=== PATIENT | female | born 1995 | race Native Hawaiian/Other Pacific Islander ===

== ENCOUNTER 2022-06-28 10:53 | Emergency (ER) | payer OTHER ==
[~2022-06-28] VITALS: Ht 160 cm; Wt 81.6 kg
[2022-06-28 11:39] LABS: PLATELET COUNT 278 K/uL (152-353)
[2022-06-28 11:48] LABS: POTASSIUM 4.5 mmol/L (3.6-5.2)
== END 2022-06-28 12:41 | disposition home or self-care (01) ==
LOC: ED 10:53
PROVIDERS: Emergency Medicine
DX: N93.9 Abnormal uterine and vaginal bleeding, unspecified (principal); F17.210 Nicotine dependence, cigarettes, uncomplicated
CPT/HCPCS: 80053; 81000; 84702; 85027; 99283